=== PATIENT | male | born 1990 | race African-American/Black ===

== ENCOUNTER 2017-02-05 02:12 | Emergency (ER) | payer OTHER ==
[~2017-02-05] VITALS: Ht 172.7 cm; Wt 79.5 kg
[2017-02-05 02:25] VITALS: BP 150/98
[2017-02-06] MEDS ORDERED: IBP200T PO (16:36)
[2017-02-06] MEDS ORDERED: OXYC1TAB87 PO (19:03)
== END 2017-02-05 02:51 | disposition home or self-care (01) ==
LOC: ED 02:17
DX: S00.01XA Abrasion of scalp, initial encounter (principal); S00.11XA Contusion of right eyelid and periocular area, initial encounter; H11.31 Conjunctival hemorrhage, right eye; W19.XXXA Unspecified fall, initial encounter; Y92.89 Other specified places as the place of occurrence of the external cause
CPT/HCPCS: 99281; 99282

== ENCOUNTER 2017-02-06 15:30 | Emergency (ER) | payer OTHER ==
[~2017-02-06] VITALS: Ht 172.7 cm; Wt 79.0 kg
--- OUTSIDE RECORDS SUMMARY | 2017-02-06 15:33 | XMS REPORT | Continuity of Care Document ---
Author Author Formerly [facility] Address Unknown Phone Unavailable Support Name Relationship Address Phone WENDIE KINSEY MD Caregiver [address] [place] [address] [employer] Next Of Kin [address] [employer] [id number] Insurance Providers Payer Name Policy Number Subscriber Name Relationship [employer] [id number] Wendie Dow 20 Self / Same As Patient Advance Directives Directive Response Recorded Date/Time Advanced Directives No 02/05/17 2:25am Chief Complaint and Reason for Visit Chief Complaint Injury Reason for Visit Conjunctival hemorrhage of left eye [id number] Problems Active Problems Medical Problem Onset Date Status Black eye of left side ~02/05/2017 Acute Conjunctival hemorrhage of left eye ~02/05/2017 Acute Scalp abrasion ~02/05/2017 Acute Medications No known medications. Social History Query Response Start Date Stop Date Smoking Status Never smoker Hospital Discharge Instructions No hospital discharge instructions. Plan of Care Discharge Date 02/05/17 2:51am Disposition 01 HOME OR SELF-CARE Condition at Discharge Stable Instructions/Education Provided Black Eye Skin Abrasions Prescriptions See Medication Section Additional Instructions/Education Apply ice to swollen as much as possible 15 minutes on 45 to an hour off for at least 24 hours while awake. Okay to shampoo hair but pat dry onside of abrasion. Tylenol or ibuprofen for pain. Follow-up with family physician as needed Some of your test results may not be complete prior to your leaving the Emergency Department. The Emergency Department is not authorized to give test results over the phone. Please contact the doctor's office listed in this packet of information for your final results. Follow up with your primary care physician or return to the Emergency Department for worsening or worrisome symptoms. * Emergency Department phone number: [phone], x [phone]* MEDICAL RECORD If you need copies of your X-rays, call [phone]. If you need copies of your medical record, including lab results, a signed authorization for release of records will be required. A telephone call for release of Health Information is not allowed. BILLING Billing can sometimes be confusing and frustrating. To help avoid confusion in the future, please take a moment to acquaint yourself with the billing parties for services. SERVICE BILLING LIBERTARIAN Emergency Room Services [facility] Physician Services [facility] X-rays [facility] Patients will receive bills for services from the appropriate provider. If you have any questions about your [facility] bill, our staff will be happy to assist you. Please call [phone], and ask for the billing department. THANK YOU for choosing [facility] as your emergency care provider! Care Plan and Goals ~~Discharge Care Plan~~ Problem: BLACK EYE, SKIN ABRASIONS Goal: DECREASED SWELLING, HEALING OF ABRASIONS Instructions: FOLLOW DISCHARGE INSTRUCTIONS PROVIDED. Functional Status No functional status results. Allergies, Adverse Reactions, Alerts No known allergies. Immunizations No immunization records. Vital Signs Acute Vital Signs Vital Response Date/Time Temperature (Fahrenheit) 98.8 02/05/2017 2:25am Pulse 111 bpm 02/05/2017 2:25am Respirations 18 02/05/2017 2:25am Height 5 ft 8 in Weight 175 lb Body Mass Index 26.0 kg/m^2 Results No known relevant diagnostic tests, laboratory data and/or discharge summary. Procedures No known history of procedures. Encounters Encounter Location Arrival/Admit Date Discharge/Depart Date Attending Provider Departed Emergency Room [facility] 02/05/17 2:17am 02/05/17 2:51am WENDIE KINSEY MD Recent Diagnosis
[2017-02-06] MEDS ORDERED: IBP200T PO (16:36)
[2017-02-06 17:00] LABS: BILIRUBIN,URINE Negative (Negative); CLARITY,URINE Cloudy; GLUCOSE, URINE (UA) Negative (Negative); LEUKOCYTE ESTERASE ,URINE Negative (Negative)
[2017-02-06] MEDS ORDERED: SODIUM CHLORIDE FLUSH 10 ML SYR IV PRN (17:05)
[2017-02-06] MEDS ORDERED: morphine INJ 2 MG/ML 1 ML SYRINGE IV PRN (17:05)
[2017-02-06] MEDS ORDERED: ONDANSETRON 2 MG/ML (Z0FRAN) 2 ML VIAL IV ONE (17:05)
[2017-02-06 17:12] LABS: BASOPHILS % (AUTO) 0 % (0-2); EOSINOPHILS # (AUTO) 0.1 10^3uL; EOSINOPHILS % (AUTO) 1 % (0-4); LYMPHOCYTES # (AUTO) 1.6 X10^3; MEAN CORPUSCULAR HEMOGLOBIN 29.2 PG (26.0-34.0); MEAN CORPUSCULAR HGB CONC 35.2 g/dL (31.0-37.0); MEAN CORPUSCULAR VOLUME 83 FL (80-100); MEAN PLATELET VOLUME 9.9 FL (6.0-9.5); MONOCYTES # (AUTO) 0.9 X10^3; MONOCYTES % (AUTO) 10 % (3-11); NEUTROPHILS # (AUTO) 5.7 X10^3; NEUTROPHILS % (AUTO) 69 % (51-67); PLATELET COUNT 225 10^3uL (150-450); WHITE BLOOD COUNT 8.26 10^3uL (4.0-11.0)
[2017-02-06 17:14] LABS: COLOR,URINE Dark Yellow
[2017-02-06 17:16] LABS: URINE CENTRIFUGED VOLUME 12 mL
[2017-02-06 17:17] LABS: ALBUMIN 4.2 g/dL (3.4-5.0); ANION GAP 15.4 MEQ/L (3-15); CALCULATED IONIZED CALCIUM 4.4 mg/dL (3.8-4.6); TOTAL PROTEIN 6.9 g/dL (6.4-8.5)
[2017-02-06 17:17] LABS: RBC,URINE >100 /HPF
[2017-02-06] MEDS ORDERED: HYDROmorphone 2 MG/ML (DILAUDID) 1 ML SYRINGE IV ONE (19:00)
[2017-02-06] MEDS ORDERED: KETOROLAC 30 MG/ML (TORADOL) 1 ML VIAL IV ONE (19:00)
[2017-02-06] MEDS ORDERED: OXYC1TAB87 PO (19:03)
[2017-02-06 22:05] VITALS: BP 165/87
--- NOTE | 2017-02-07 06:58 | Diagnostic Imaging Report ---
PROCEDURE: CT abdomen and pelvis with contrast. TECHNIQUE: Multiple contiguous axial images were obtained through the abdomen and pelvis after administration of intravenous contrast. INDICATION: Right flank pain, hematuria after falling and hitting back on the curb. EXAMINATION: CT abdomen pelvis with contrast 02/06/2017. FINDINGS: Lung bases are clear. The osseous structures demonstrate no acute disease. The liver contains a hypodensity immediately adjacent to the falciform ligament. This is nonspecific finding but could be a focus of fatty change. This could be followed to assure stability. However, this is less evident on the delayed imaging, therefore, a lesion perhaps a hemangioma not excluded at this time. Dedicated followup CT liver protocol could better evaluate. The gallbladder and spleen appear unremarkable. The adrenal glands and pancreas are normal in appearance. The right kidney contains punctate and does look slightly larger nonobstructive stones. There is mild to moderate hydronephrosis on the right with the right ureter also dilated along its course. A 6 cm stone in the distal right ureter proximal to the UVJ is also noted. No ureteral stones noted on the left. Hypodensities left kidney too small to characterize. No stones seen in the left kidney. There is no ascites, free air or lymphadenopathy. IMPRESSION: 1. 6 mm stone distal right ureter with secondary [id number] right hydroureteronephrosis. Nonobstructive stones right kidney also noted with small hypodensities too small to characterize in the left kidney. 2. Hypodensity in the liver described above is nonspecific, see above discussion and recommendations. Other incidental findings as discussed above. Overall findings agree with the preliminary report with the added to a finding of the liver density. Dictated by: Dictated on workstation # [id number]
--- NOTE | 2017-02-07 09:10 | Diagnostic Imaging Report ---
INDICATION: Chest pain after fall. COMPARISON STUDY: None. FINDINGS: Frontal and lateral views of the chest demonstrates lungs to be clear. The heart, mediastinum, pulmonary vascularity and visualized bony thorax are normal. No pleural effusion or pneumothorax seen. IMPRESSION: Negative chest. Dictated by: Dictated on workstation # [id number]
== END 2017-02-06 19:41 | disposition home or self-care (01) ==
LOC: ED 15:31
DX: N13.2 Hydronephrosis with renal and ureteral calculous obstruction (principal); R93.2 Abnormal findings on diagnostic imaging of liver and biliary tract
CPT/HCPCS: 36415; 71020; 74177; 80053; 81003; 81015; 85025; 96374; 96375; 99283; J1170; J1885; J2270; J2405; Q9967